=== PATIENT | female | born 1985 | race Two or more races ===

== ENCOUNTER 2018-12-21 17:08 | Emergency (ER) | payer OTHER ==
[~2018-12-21] VITALS: Ht 162.6 cm; Wt 69.4 kg
[2018-12-21] MEDS ORDERED: PRENATAL + DHA1 EAC1 PO (17:53)
== END 2018-12-21 20:40 | disposition home or self-care (01) ==
LOC: ER 17:08
DX: O26.851 Spotting complicating pregnancy, first trimester (principal); Z34.81 Encounter for supervision of other normal pregnancy, first trimester